=== PATIENT | female | born 1945 | race American Indian/Alaskan Native ===

== ENCOUNTER 2017-02-03 17:08 | Emergency (ER) | payer MEDICARE ==
[2017-02-03 18:26] LABS: Albumin 3.8 g/dL (3.9-5); Albumin/Globulin Ratio 0.9 %; BUN/Creatinine Ratio 12.22; Calcium 10.2 mg/dL (8.4-10.2); Chloride 94.3 mmol/L (98-107); Potassium 3.5 mmol/L (3.6-5.0); Total Protein 7.9 g/dL (6.3-8.2)
[2017-02-03 19:18] LABS: Hematocrit 29.3 % (30.3-42.9); Hemoglobin 9.5 gm/dl (10.1-14.3); Mean Corpuscular HGB Conc 33 % (30-34); Mean Corpuscular Volume 71 fl (79-97); Platelet Count 238 K/mm3 (140-440); Red Blood Count 4.12 M/mm3 (3.65-5.03); Red Cell Distribution Width 16.4 % (13.2-15.2); White Blood Count 8.1 K/mm3 (4.5-11.0)
[2017-02-03 19:41] LABS: Mean Corpuscular Hemoglobin 23 pg (28-32)
[2017-02-03 20:16] LABS: Blastocytes % (Manual) 0 %
[2017-02-03 20:17] LABS: Anisocytosis 1+; Diff Status Complete; Hypochromasia 1+; Microcytosis 1+; Ovalocytes Few; Poikilocytosis 1+; Target Cells 1+
--- NOTE | 2017-02-03 20:28 | Emergency Department Report ---
ED Fall HPI - General Chief Complaint: Extremity Injury, Lower Stated Complaint: FALL/LT FOOT/ KNEE SWOLLEN Time Seen by Provider: 02/03/17 20:07 Source: patient Mode of arrival: Wheelchair - History of Present Illness Initial Comments: Pt is a 71 yr old F with a h/o HTN who presents with L knee and L foot pain. Pt is visiting from [place], [place] and was having arthritic pain when her PMD prescribed her a narcotic and muscle relaxant while here in [place]. Pt reports dizziness from the medication and had a fall onto the L knee and foot 3 days ago. Pt now reports pain with amublation and swelling to the L knee. Otherwise no head trauma, LOC, other extremity pains. Otherwise no other complaints - Related Data Allergies Allergy/AdvReac Type Severity Reaction Status Date / Time Sulfa (Sulfonamide Allergy Unknown Verified 02/03/17 17:16 Antibiotics) ED Review of Systems ROS: Stated complaint: FALL/LT FOOT/ KNEE SWOLLEN Other details as noted in HPI Comment: All other systems reviewed and negative ED Past Medical Hx - Past Medical History Hx Hypertension: Yes - Surgical History Additional Surgical History: cervical, back, intestinal - Social History Smoking Status: Never Smoker Substance Use Type: None ED Physical Exam - General Limitations: No Limitations General appearance: alert, in no apparent distress - Head Head exam: Present: atraumatic, normocephalic - Eye Eye exam: Present: normal appearance - ENT ENT exam: Present: mucous membranes moist - Neck Neck exam: Present: normal inspection - Respiratory Respiratory exam: Present: normal lung sounds bilaterally. Absent: respiratory distress - Cardiovascular Cardiovascular Exam: Present: regular rate, normal rhythm. Absent: systolic murmur, diastolic murmur, rubs, gallop - GI/Abdominal GI/Abdominal exam: Present: soft, normal bowel sounds - Rectal Rectal exam: Present: deferred - Extremities Exam Extremities exam: Present: tenderness (L knee, L foot and L ankle), normal capillary refill. Absent: pedal edema, joint swelling, calf tenderness - Expanded Lower Extremity Exam Left Hip exam: Present: normal inspection, full ROM Upper Leg exam: Present: normal inspection, full ROM Knee exam: Present: full ROM, tenderness, swelling (Mild), full knee extension. Absent: abrasion, laceration, ecchymosis, deformity, dislocation, erythema, effusion Lower Leg exam: Present: normal inspection, full ROM Ankle exam: Present: normal inspection, full ROM, tenderness. Absent: deformity , dislocation, erythema Foot/Toe exam: Present: normal inspection, full ROM, tenderness. Absent: ecchymosis Neuro vascular tendon exam: Present: no vascular compromise. Absent: pulse deficit, abnormal cap refill, motor deficit, sensory deficit Gait: Positive: observed and limited by pain - Back Exam Back exam: Present: normal inspection - Neurological Exam Neurological exam: Present: alert, oriented X3 - Psychiatric Psychiatric exam: Present: normal affect, normal mood - Skin Skin exam: Present: warm, dry, intact, normal color. Absent: rash ED Course Vital Signs 02/03/17 02/03/17 02/03/17 17:18 19:52 22:19 Temperature 98.9 F 98.3 F Pulse Rate 95 H 80 Respiratory 18 18 16 Rate Blood Pressure 100/57 Blood Pressure 127/67 [Left] O2 Sat by Pulse 100 96 Oximetry ED Medical Decision Making - Lab Data Result diagrams: 02/03/17 17:54 02/03/17 17:54 - EKG Data -: EKG Interpreted by Me - EKG Data 02/03/17 20:31 EKG 1729, normal sinus rhythm at 96 bpm, QTC 424 ms, normal axis, no LVH, left atrial enlargement, no ST changes, no STEMI - Radiology Data Radiology results: image reviewed X ray Knee: No acute fracture or dislocation as visualized by me X ray Ankle: No acute fracture or dislocation as visualized by me Xray Foot: No acute fracture or dislocation as visualized by me - Medical Decision Making Results discussed with family and patient Instructed patient to take either the pain medication OR the muscle relaxant and not to take them together, patient understood Pt to follow up with her PMD in [place], [place] Critical care attestation.: If time is entered above; I have spent that time in minutes in the direct care of this critically ill patient, excluding procedure time. ED Disposition Clinical Impression: Left knee pain, Left foot pain, Fall Disposition: TO HOME OR SELFCARE Is pt being admited?: No Condition: Stable Referrals: [facility]ARE,[place] [Primary Care Provider] - 3-5 Days
[2017-02-03] MEDS ORDERED: TORADOL IV ONE (22:03)
[2017-02-03] MEDS ORDERED: MORPHINE ONE (22:14)
[2017-02-03] MEDS ORDERED: MORPHINE IM ONE (22:14)
--- NOTE | 2017-02-04 00:10 | XRay Report ---
FINAL REPORT PROCEDURE: XR ANKLE 3 LT TECHNIQUE: Left ankle radiographs, AP, lateral, and oblique views. CPT 88118 HISTORY: injury COMPARISON: No prior studies are available for comparison. FINDINGS: Fracture (s) and/or Dislocation(s): None . Alignment: Normal . Joint space(s): Normal . Soft tissues: Normal . Bone mineralization: Normal . Foreign bodies: None . Calcaneal spurring: There are small calcaneal spurs . IMPRESSION: There is no acute bony or soft tissue abnormality..
--- NOTE | 2017-02-04 00:21 | XRay Report ---
FINAL REPORT PROCEDURE: XR KNEE 3V LT TECHNIQUE: LEFT knee radiographs, AP and lateral views. CPT 48019 HISTORY: injury COMPARISON: No prior studies are available for comparison. FINDINGS: Fracture (s) and/or Dislocation(s): None . Alignment: Normal . Joint space(s): Normal . Soft tissues: Normal . Bone mineralization: Normal . Foreign bodies: None . IMPRESSION: Normal Examination.
--- NOTE | 2017-02-04 00:27 | XRay Report ---
FINAL REPORT PROCEDURE: XR FOOT 3 LT TECHNIQUE: Left foot radiographs, AP, lateral, and oblique views. CPT 37029 HISTORY: injury COMPARISON: No prior studies are available for comparison. FINDINGS: Fracture (s) and/or Dislocation(s): None . Alignment: Normal . 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 Soft tissues: Normal . Bone mineralization: Normal . Foreign bodies: None . Calcaneal spurring: None . IMPRESSION: There are no fractures or malalignments. 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
[2017-02-04 00:55] VITALS: BP 121/62
== END 2017-02-04 00:51 | disposition home or self-care (01) ==
LOC: ED 17:08
DX: M25.562 Pain in left knee (principal); M79.672 Pain in left foot; I10 Essential (primary) hypertension; Z88.2 Allergy status to sulfonamides; W19.XXXA Unspecified fall, initial encounter; Y93.89 Activity, other specified; Y99.9 Unspecified external cause status; Y92.89 Other specified places as the place of occurrence of the external cause
CPT/HCPCS: 36415; 73562; 73610; 73630; 80053; 85007; 85025; 93005; 93010; 96372; 99284; J2270; J1885